=== PATIENT | male | born 1960 | race African-American/Black ===

== ENCOUNTER 2019-10-20 10:12 | Emergency (ER) | payer MEDICAID, OTHER ==
[~2019-10-20] VITALS: Ht 175.3 cm; Wt 93.8 kg
[~2019-10-20 10:12] MED LIST: IBUP-1008; TOPUD
[2019-10-20] MEDS ORDERED: MECLIZINE 25MG TABLET PO ONE (11:45)
[2019-10-20 12:08] VITALS: BP 140/86
== END 2019-10-20 12:10 | disposition home or self-care (01) ==
LOC: ER 10:12
DX: R42 Dizziness and giddiness (principal)
CPT/HCPCS: 99282; J8597

== ENCOUNTER 2020-07-31 10:33 | Emergency (ER) | payer MEDICAID ==
[~2020-07-31] VITALS: Ht 177.8 cm; Wt 100.0 kg
[2020-07-31 11:04] VITALS: BP 150/99
== END 2020-07-31 11:15 | disposition home or self-care (01) ==
LOC: ER 10:52
DX: R21 Rash and other nonspecific skin eruption (principal); L29.9 Pruritus, unspecified; I10 Essential (primary) hypertension
CPT/HCPCS: 99283

== ENCOUNTER 2021-07-16 14:14 | Emergency (ER) | payer MEDICAID ==
[~2021-07-16] VITALS: Ht 180.3 cm; Wt 82.0 kg
[2021-07-16] MEDS ORDERED: HYDR453.3 TP (15:23)
[2021-07-16] MEDS ORDERED: CETI-338 PO (15:23)
[2021-07-16 16:57] VITALS: BP 166/107
== END 2021-07-16 17:02 | disposition home or self-care (01) ==
LOC: ER 14:14
DX: L25.9 Unspecified contact dermatitis, unspecified cause (principal)
CPT/HCPCS: 99283

== ENCOUNTER 2021-11-23 12:13 | Emergency (ER) | payer MEDICAID ==
[~2021-11-23] VITALS: Ht 175.3 cm; Wt 91.0 kg
[~2021-11-23 12:13] MED LIST changes: +CETI-338 PO; +HYDR453.3 TP
[2021-11-23] MEDS ORDERED: CEPH500T MT (17:31)
[2021-11-23 18:01] VITALS: BP 128/76
== END 2021-11-23 18:02 | disposition home or self-care (01) ==
LOC: ER 12:13
DX: L03.116 Cellulitis of left lower limb (principal); L97.828 Non-pressure chronic ulcer of other part of left lower leg with other specified severity; Z79.899 Other long term (current) drug therapy; I87.2 Venous insufficiency (chronic) (peripheral)
CPT/HCPCS: 99283; Z7610